=== PATIENT | female | born 1965 | race Caucasian/White ===

== ENCOUNTER 2016-08-29 06:23 | Day surgery (SDC) | payer BC ==
[2016-08-28 09:00] VITALS: BMI 32.3
[~2016-08-29 06:23] MED LIST: DEXAMETHASONE SOD PHOSPHATE 10 MG/ML 1 ML VIAL IV ONE; HEPARIN SODIUM,PORCINE 5,000 UNIT/ML 1 ML VIAL SQ ONE; HYDROmorphone 1 MG/ML 1 ML SYRINGE IVP PRN; LACTATED RINGERS 1,000 ML IV SCH; LIDOCAINE 1% 20 ML VIAL (10MG/ML) FOR IV START INTRADERMA PRN; ONDANSETRON 4 MG/2 ML VIAL IVP ONE; Pre Op ABX Message 1 EACH MISC MISCELLANE ONE; SCOPOLAMINE 1.5MG/72HR PATCH TRANSDERM ONE
[2016-08-29 07:00] VITALS: RESP 16; TEMP 97.9
[2016-08-29] MEDS ORDERED: MIDAZOLAM 2 MG/2 ML VIAL ONE (07:53)
[2016-08-29] MEDS ORDERED: PROPOFOL 10 MG/ML 20 ML VIAL IV ONE (07:53)
[2016-08-29] MEDS ORDERED: fentaNYL (PF) 50 MCG/ML 2 ML AMP ONE (07:53)
[2016-08-29] MEDS ORDERED: LIDOCAINE 1% INJ 10MG/ML (20 ML MDV) ONE (07:53)
--- NOTE | 2016-08-29 07:57 | P.GSHP ---
History of Present Illness H&P Date: 08/29/16 Chief Complaint: Multiple sebaceous cysts of scalp This a 51-year-old female who presents today for excision of sebaceous cyst scalp. Patient developed 6 sebaceous cyst of scalp. They're located along the right anterior and posterior scalp. - Constitutional Constitutional: Reports as per HPI Past Medical History Past Medical History: GERD/Reflux, Hypertension, Osteoarthritis (OA), Skin Disorder Additional Past Medical History / Comment(s): Gilbert's Syndrome. SEBACEOUS CYSTS SCALP. History of Any Multi-Drug Resistant Organisms: None Reported Past Surgical History: Breast Surgery, Orthopedic Surgery, Tubal Ligation Additional Past Surgical History / Comment(s): Foot surg. EXC Lump removed back. SUSAN BREAST REDUCTION. Past Anesthesia/Blood Transfusion Reactions: Postoperative Nausea & Vomiting ( PONV) Past Psychological History: No Psychological Hx Reported Smoking Status: Former smoker Past Alcohol Use History: Occasional Additional Past Alcohol Use History / Comment(s): Quit smoking 2004, Smoked for 3 yrs. Past Drug Use History: None Reported - Past Family History Mother Family Medical History: No Reported History Medications and Allergies Home Medications Medication Instructions Recorded Confirmed Type Calcium Carbonate [Calcium] 600 mg PO DAILY 05/09/15 08/28/16 History Garlic 1 each PO DAILY 05/09/15 08/28/16 History Krill Oil 500 mg PO DAILY 05/09/15 08/28/16 History Ranitidine HCl [Zantac] 150 mg PO DAILY 05/09/15 08/28/16 History Hydrochlorothiazide [Hydrodiuril] 0.5 tab PO DAILY 08/28/16 08/28/16 History Allergies Allergy/AdvReac Type Severity Reaction Status Date / Time No Known Allergies Allergy Verified 08/29/16 06:57 Surgical - Exam Vital Signs Temp Pulse Resp BP Pulse Ox 97.9 F 87 16 114/79 97 08/29/16 06:58 08/29/16 06:58 08/29/16 06:58 08/29/16 06:58 08/29/16 06:58 - General well developed, no distress - Eyes PERRL - ENT Multiple sebaceous cysts of scalp measuring 1-2 cm. There is a total of 6 sebaceous cysts located along the right scalp. normal pinna - Neck no masses - Respiratory normal expansion - Cardiovascular Rhythm: regular - Abdomen Abdomen: soft, non tender Assessment and Plan Plan: Multiple Sebaceous cyst scalp. We'll perform excision.
[2016-08-29] MEDS ORDERED: BUPIVACAIN-EPI 0.25%-1:200,000 30 ML VIAL SQ ONE (08:09)
--- NOTE | 2016-08-29 09:05 | P.OP ---
Date of Procedure: 08/29/16 Preoperative Diagnosis: Multiple sebaceous cyst scalp Postoperative Diagnosis: Multiple sebaceous of scalp excision Procedure(s) Performed: Multiple sebaceous cyst of scalp with excision Anesthesia: EDUARDO Surgeon: Lester Pfeiffer Pathology: other (Sebaceous cyst of scalp 6) Condition: stable Disposition: PACU Description of Procedure: Patient's placed on the operative table in the supine position. She received IV sedation. The patient had 4 sebaceous cyst located on the right anterior portion of her scalp and 2 sebaceous cyst on the right posterior portion of her scalp. The system and pericecal marked in preoperative hold area skin had been shaved in this area. The sebaceous cyst measured between 1 and 2 cm. The skin incision sites were anesthetized 1% local Xylocaine. And then the skin was incised over each sebaceous cyst 13 blade. Using hemostats the cysts were bluntly dissected and removed. The Bovie hemostasis. The skin was closed interrupted 3-0 Monocryl suture. Patient was sent to recovery in stable condition.
[2016-08-29 09:23] VITALS: BP 98/65; PULSE 58
== END 2016-08-29 09:39 | disposition home or self-care (01) ==
LOC: OR 06:23
PROVIDERS: ATTEND Surgery
DX: L72.11 Pilar cyst (principal); K21.9 Gastro-esophageal reflux disease without esophagitis; I10 Essential (primary) hypertension; M19.90 Unspecified osteoarthritis, unspecified site; Z87.891 Personal history of nicotine dependence; Z79.899 Other long term (current) drug therapy
CPT/HCPCS: 81025; 88304; 11426; J2250; J1100; J2405; J2001; J3010; J2704

== ENCOUNTER → 2017-07-07 | Outpatient (CLI) | payer BC ==
--- NOTE | 2017-07-08 13:41 | MM ---
Reason for exam: screening (asymptomatic). Last mammogram was performed 4 years and 2 months ago. History: Family history of breast cancer in paternal aunt and breast cancer in maternal aunt. Reductions of both breasts, 1980. Took hormonal contraceptives for 5 years beginning at age 18. Physical Findings: A clinical breast exam by your physician is recommended on an annual basis and results should be correlated with mammographic findings. MG Screening Mammo w CAD Bilateral CC and MLO view(s) were taken. Prior study comparison: May 19, 2013, bilateral digital screening mammo w/CAD. April 13, 2012, CAD bilateral diagnostic mammogram. There are scattered fibroglandular densities. Stable nodular asymmetry anterior superior left breast. No significant changes when compared with prior studies. ASSESSMENT: Benign, BI-RAD 2 RECOMMENDATION: Routine screening mammogram of both breasts in 1 year.
== END | disposition home or self-care (01) ==
LOC: RADMAMWWP 07:52
PROVIDERS: ATTEND Obstetrics & Gynecology
DX: Z12.31 Encounter for screening mammogram for malignant neoplasm of breast (principal)
CPT/HCPCS: 77067

== ENCOUNTER → 2018-11-22 | Outpatient (CLI) | payer BC ==
--- NOTE | 2018-11-24 07:56 | MM ---
Reason for exam: screening (asymptomatic). Last mammogram was performed 1 year and 5 months ago. History: Family history of breast cancer in paternal aunt. Reductions of both breasts, 1980. Took hormonal contraceptives for 5 years beginning at age 18. MG Screening Mammo w CAD Bilateral CC and MLO view(s) were taken. Prior study comparison: July 07, 2017, bilateral MG screening mammo w CAD. May 19, 2013, bilateral digital screening mammo w/CAD. There are scattered fibroglandular densities. No significant new finding when compared with prior studies. ASSESSMENT: Benign, BI-RAD 2 RECOMMENDATION: Routine screening mammogram of both breasts in 1 year.
== END | disposition home or self-care (01) ==
LOC: RADMAMWWP 14:53
PROVIDERS: ATTEND Obstetrics & Gynecology
DX: Z12.31 Encounter for screening mammogram for malignant neoplasm of breast (principal)
CPT/HCPCS: 77067

== ENCOUNTER → 2020-03-29 | Outpatient (CLI) | payer BC ==
--- NOTE | 2020-03-29 14:33 | MM ---
Reason for exam: screening (asymptomatic). Last mammogram was performed 1 year and 4 months ago. History: Patient is postmenopausal. Family history of breast cancer in paternal aunt. Reductions of both breasts, 1980. Took hormonal contraceptives for 5 years beginning at age 18. Physical Findings: A clinical breast exam by your physician is recommended on an annual basis and results should be correlated with mammographic findings. MG Screening Mammo w CAD Bilateral CC and MLO view(s) were taken. Prior study comparison: November 22, 2018, bilateral MG screening mammo w CAD. July 07, 2017, bilateral MG screening mammo w CAD. There are scattered fibroglandular densities. Finding #1: There is a 9 mm round mass located 3 cm from the nipple in the middle, central position of the left breast. Finding #2: There are typically benign round calcifications in both breasts. Focal asymmetry right anterior outer aspect. New finding since November 22, 2018 and July 07, 2017. ASSESSMENT: Incomplete: need additional imaging evaluation, BI-RAD 0 RECOMMENDATION: Special view mammogram of both breasts. If lesion persists on supplemental views, image directed ultrasound is recommended. [facility] will attempt to contact patient to return for supplemental views and ultrasound if indicated.
== END | disposition home or self-care (01) ==
LOC: RADMAMWWP 10:40
PROVIDERS: ATTEND Obstetrics & Gynecology
DX: Z12.31 Encounter for screening mammogram for malignant neoplasm of breast (principal)
CPT/HCPCS: 77067

== ENCOUNTER → 2020-04-04 | Outpatient (CLI) | payer BC ==
--- NOTE | 2020-04-04 10:31 | MM ---
Reason for exam: additional evaluation requested from abnormal screening. Last mammogram was performed less than 1 month ago. History: Patient is postmenopausal. Family history of breast cancer in paternal aunt. Reductions of both breasts, 1980. Took hormonal contraceptives for 5 years beginning at age 18. Physical Findings: Nurse did not find any significant physical abnormalities on exam. MG Work Up Mamm w CAD BILAT Bilateral spot compression CC, spot compression MLO, and LM view(s) were taken. Prior study comparison: March 29, 2020, bilateral MG screening mammo w CAD. November 22, 2018, bilateral MG screening mammo w CAD. There is no discrete abnormality. These results were verbally communicated with the patient and result sheet given to the patient on 04/04/20. ASSESSMENT: Probably benign, BI-RAD 3 RECOMMENDATION: Follow-up diagnostic mammogram of both breasts in 6 months.
== END | disposition home or self-care (01) ==
LOC: RADMAMWWP 09:28
PROVIDERS: ATTEND Obstetrics & Gynecology
DX: R92.8 Other abnormal and inconclusive findings on diagnostic imaging of breast (principal)
CPT/HCPCS: 77066

== ENCOUNTER → 2021-04-09 | Outpatient (CLI) | payer BC ==
--- NOTE | 2021-04-10 14:30 | MM ---
Reason for exam: screening (asymptomatic). Last mammogram was performed 1 year ago. History: Patient is postmenopausal. Family history of breast cancer in paternal aunt. Reductions of both breasts, July 2020. Reductions of both breasts, 1979. Took hormonal contraceptives for 5 years beginning at age 18. Physical Findings: A clinical breast exam by your physician is recommended on an annual basis and results should be correlated with mammographic findings. MG Screening Mammo w CAD Bilateral CC and MLO view(s) were taken. XCCL view(s) were taken of the right breast. Prior study comparison: April 04, 2020, bilateral MG work up mamm w CAD BILAT. March 29, 2020, bilateral MG screening mammo w CAD. The breast tissue is heterogeneously dense. This may lower the sensitivity of mammography. Finding #1: There is a 7 mm equal density (isodense), oval mass in the upper quadrant, central position of the left breast. Finding #2: There are typically benign calcifications in both breasts. There is a 5mm oval nodule in the right outer breast. ASSESSMENT: Incomplete: need additional imaging evaluation, BI-RAD 0 RECOMMENDATION: Special view mammogram of both breasts. If lesion persists on supplemental views, image directed ultrasound is recommended. [facility] will attempt to contact patient to return for supplemental views and ultrasound if indicated.
== END | disposition home or self-care (01) ==
LOC: RADMAMWWP 15:39
PROVIDERS: ATTEND Obstetrics & Gynecology
DX: Z12.31 Encounter for screening mammogram for malignant neoplasm of breast (principal); Z78.0 Asymptomatic menopausal state; Z80.3 Family history of malignant neoplasm of breast
CPT/HCPCS: 77067

== ENCOUNTER → 2021-04-18 | Outpatient (CLI) | payer BC ==
--- NOTE | 2021-04-22 10:21 | MM ---
Reason for exam: additional evaluation requested from abnormal screening. Last mammogram was performed less than 1 month ago. History: Patient is postmenopausal. Family history of breast cancer in paternal aunt. Reductions of both breasts, July 2020. Reductions of both breasts, 1979. Took hormonal contraceptives for 5 years beginning at age 18. Physical Findings: Nurse did not find any significant physical abnormalities on exam. MG Work Up Mamm w CAD BILAT Bilateral spot compression CC and LM view(s) were taken. Spot compression MLO view(s) were taken of the left breast. Prior study comparison: April 09, 2021, bilateral MG screening mammo w CAD. April 04, 2020, bilateral MG work up mamm w CAD BILAT. There are scattered fibroglandular densities. Status post reduction mammoplasty changes. Density on the right becomes less defined, suspect post surgical change. 6 month follow up. A couple focal asymmetries remain centrally left breast. Ultrasound recommended. These may be post surgical change. These results were verbally communicated with the patient and result sheet given to the patient on 04/18/21. ASSESSMENT: Incomplete: need additional imaging evaluation, BI-RAD 0 RECOMMENDATION: Ultrasound of the left breast.
--- NOTE | 2021-04-22 10:23 | USB ---
Reason for exam: additional evaluation requested from abnormal screening. History: Patient is postmenopausal. Family history of breast cancer in paternal aunt. Reductions of both breasts, July 2020. Reductions of both breasts, 1979. Took hormonal contraceptives for 5 years beginning at age 18. US Breast Workup Limited LT Left limited breast ultrasound including focal area of concern, retroareolar and axilla demonstrates no cystic or solid lesion seen. Scanned 12-3 o'clock and entire periareolar region zone A. The mammographic densities may correspond to post operative changes. 6 month follow up recommended. These results were verbally communicated with the patient and result sheet given to the patient on 04/18/21. ASSESSMENT: Probably benign, BI-RAD 3 RECOMMENDATION: Return to routine screening mammogram schedule for both breasts.
== END | disposition home or self-care (01) ==
LOC: RADMAMWWP 06:58
PROVIDERS: ATTEND Obstetrics & Gynecology
DX: N64.89 Other specified disorders of breast (principal); Z80.3 Family history of malignant neoplasm of breast; Z78.0 Asymptomatic menopausal state
CPT/HCPCS: 77066

== ENCOUNTER → 2022-04-10 | Outpatient (CLI) | payer BC ==
--- NOTE | 2022-04-11 11:29 | MM ---
Reason for Exam: Screening (asymptomatic). Last screening mammogram was performed 12 month(s) ago. Patient History: Menarche at age 10. First Full-Term at age 21. Postmenopausal. Hormonal Contraceptives for 5 years from age 18 until age 25. 07/2020, Bilateral Reduction. 1979, Bilateral Reduction. Paternal aunt had breast cancer at or over age 50. Risk Values: Madhavi 5 year model risk: 1.3%. NCI Lifetime model risk: 7.6%. Prior Study Comparison: 04/04/2020 Bilateral Diagnostic Mammogram, [facility]. 04/09/2021 Bilateral Screening Mammogram, [facility]. 04/18/2021 Bilateral Diagnostic Mammogram, [facility]. Tissue Density: The breast tissue is heterogeneously dense. This may lower the sensitivity of mammography. Findings: Analyzed By CAD. Poor visualization of posterior tissue bilaterally on CC views. There is focal asymmetry in the posterior depth centrally right breast fat warrants further workup immediately anterior to a benign round calcification. There is no suspicious group of microcalcifications in either breast. Overall Assessment: Incomplete: need additional imaging evaluation, BI-RAD 0 Management: Special View Mammogram of the right breast. Return for additional views right breast. Electronically signed and approved by: Henrry Booker M.D.
== END | disposition home or self-care (01) ==
LOC: RADMAMWWP 07:05
PROVIDERS: ATTEND Obstetrics & Gynecology
DX: Z12.31 Encounter for screening mammogram for malignant neoplasm of breast (principal); Z78.0 Asymptomatic menopausal state; Z80.3 Family history of malignant neoplasm of breast
CPT/HCPCS: 77067

== ENCOUNTER → 2022-05-28 | Outpatient (CLI) | payer BC ==
--- NOTE | 2022-05-28 07:41 | MM ---
Reason for Exam: Additional evaluation requested from abnormal screening. Last screening mammogram was performed 2 month(s) ago. Patient History: Menarche at age 10. First Full-Term at age 21. Postmenopausal. Hormonal Contraceptives for 5 years from age 18 until age 25. 07/2020, Bilateral Reduction. 1979, Bilateral Reduction. Paternal aunt had breast cancer at or over age 50. Risk Values: Madhavi 5 year model risk: 1.3%. NCI Lifetime model risk: 7.6%. Prior Study Comparison: 04/09/2021 Bilateral Screening Mammogram, [facility]. 04/18/2021 Bilateral Diagnostic Mammogram, [facility]. 04/10/2022 Bilateral MG screening mammo w CAD, [facility]. Tissue Density: Right: The breast tissue is heterogeneously dense. This may lower the sensitivity of mammography. Findings: Analyzed By CAD. Nodular density right 11:00 position 5.7 cm from the nipple measures 1.2 cm. Ultrasound is recommended. Overall Assessment: Incomplete: need additional imaging evaluation, BI-RAD 0 Management: Diagnostic Breast Ultrasound of the right breast. A clinical breast exam by your physician is recommended on an annual basis and results should be correlated with mammographic findings. This exam should not preclude additional follow-up of suspicious palpable abnormalities. Results were given to the patient verbally at the time of exam. Electronically signed and approved by: Eren Hunter M.D. Radiologis
--- NOTE | 2022-05-28 08:04 | USB ---
Reason for Exam: Additional evaluation requested from abnormal screening. Patient History: Menarche at age 10. First Full-Term at age 21. Postmenopausal. Hormonal Contraceptives for 5 years from age 18 until age 25. 07/2020, Bilateral Reduction. 1979, Bilateral Reduction. Paternal aunt had breast cancer at or over age 50. Risk Values: Madhavi 5 year model risk: 1.3%. NCI Lifetime model risk: 7.6%. Technique: Method: Targeted. Patient Position: Supine. Prior Study Comparison: 04/09/2021 Bilateral Screening Mammogram, [facility]. 04/18/2021 Bilateral Diagnostic Mammogram, [facility]. 04/10/2022 Bilateral MG screening mammo w CAD, [facility]. Findings: The upper outer quadrant of the right breast, the axilla of the right breast and the retroareolar of the right breast were scanned. No solid or cystic masses are identified.. Overall Assessment: Probably benign, BI-RAD 3 Management: Diagnostic Mammogram of the right breast in 6 months. A clinical breast exam by your physician is recommended on an annual basis and results should be correlated with mammographic findings. This exam should not preclude additional follow-up of suspicious palpable abnormalities. Results were given to the patient verbally at the time of exam. Electronically signed and approved by: Eren Hunter M.D. Radiologis
== END | disposition home or self-care (01) ==
LOC: RADMAMWWP 06:55
PROVIDERS: ATTEND Obstetrics & Gynecology
DX: R92.8 Other abnormal and inconclusive findings on diagnostic imaging of breast (principal); Z78.0 Asymptomatic menopausal state; Z80.3 Family history of malignant neoplasm of breast
CPT/HCPCS: 77065

== ENCOUNTER → 2022-11-13 | Outpatient (CLI) | payer BC ==
--- NOTE | 2022-11-13 07:33 | MM ---
Reason for Exam: Follow-up at short interval from prior study. Last screening mammogram was performed 7 month(s) ago. Patient History: Menarche at age 10. First Full-Term at age 21. Postmenopausal. Estrogen, starting at age 56. 07/2020, Bilateral Reduction. 1979, Bilateral Reduction. Paternal aunt had breast cancer at or over age 50. Risk Values: Madhavi 5 year model risk: 1.3%. NCI Lifetime model risk: 7.6%. Prior Study Comparison: 04/18/2021 Bilateral Diagnostic Mammogram, [facility]. 04/10/2022 Bilateral MG screening mammo w CAD, [facility]. 05/28/2022 Right MG work up mamm w CAD RT, [facility]. Tissue Density: Right: The breast tissue is heterogeneously dense. This may lower the sensitivity of mammography. Findings: Analyzed By CAD. Asymmetric density upper outer right breast persists and is likely related to prior reduction mammoplasty. Continued follow-up is advised. No suspicious calcifications evident. Overall Assessment: Probably benign, BI-RAD 3 Management: Diagnostic Mammogram of both breasts in 6 months. . Results were given to the patient verbally at the time of exam. Patient should continue monthly self-breast exams. A clinical breast exam by your physician is recommended on an annual basis. This exam should not preclude additional follow-up of suspicious palpable abnormalities. Note on Madhavi scores and lifetime risk: 1. A Madhavi score greater than 3% is considered moderate risk. If this is the case, consider specialist referral to assess eligibility for a risk reducing agent. 2. If overall lifetime risk for the development of breast cancer is 20% or higher, the patient may qualify for future screening with alternating mammogram and breast MRI. Electronically signed and approved by: Eren Hunter M.D. Radiologis
== END | disposition home or self-care (01) ==
LOC: RADMAMWWP 07:13
PROVIDERS: ATTEND Obstetrics & Gynecology
DX: R92.8 Other abnormal and inconclusive findings on diagnostic imaging of breast (principal); Z78.0 Asymptomatic menopausal state; Z80.3 Family history of malignant neoplasm of breast
CPT/HCPCS: 77061; 77065

== ENCOUNTER → 2023-07-02 | Outpatient (CLI) | payer BC ==
--- NOTE | 2023-07-02 09:48 | MM ---
Reason for Exam: Follow-up at short interval from prior study. Last mammogram was performed 1 year(s) and 3 month(s) ago. Patient History: Menarche at age 10. First Full-Term at age 21. Postmenopausal. Estrogen, starting at age 56. 07/2020, Bilateral Reduction. 1979, Bilateral Reduction. Paternal aunt had breast cancer at or over age 50. Risk Values: Madhavi 5 year model risk: 1.4%. NCI Lifetime model risk: 7.4%. Tissue Density: The breasts are heterogeneously dense, which may obscure small masses. Findings: Analyzed By CAD. Asymmetric density upper outer left breast 2.5 cm from the nipple measuring approximately 1 cm. Ultrasound is recommended. No mass seen of the right breast. There is disorganized breast tissue seen bilaterally compatible with reduction mammoplasty. No suspicious calcifications present. Overall Assessment: Incomplete: need additional imaging evaluation, BI-RAD 0 Management: Diagnostic Breast Ultrasound of the left breast. . Results were given to the patient verbally at the time of exam. Patient should continue monthly self-breast exams. A clinical breast exam by your physician is recommended on an annual basis. This exam should not preclude additional follow-up of suspicious palpable abnormalities. Note on Madhavi scores and lifetime risk: 1. A Madhavi score greater than 3% is considered moderate risk. If this is the case, consider specialist referral to assess eligibility for a risk reducing agent. 2. If overall lifetime risk for the development of breast cancer is 20% or higher, the patient may qualify for future screening with alternating mammogram and breast MRI. Electronically signed and approved by: Eren Hunter M.D. Radiologis
--- NOTE | 2023-07-02 10:08 | USB ---
Patient History: Menarche at age 10. First Full-Term at age 21. Postmenopausal. Estrogen, starting at age 56. 07/2020, Bilateral Reduction. 1979, Bilateral Reduction. Paternal aunt had breast cancer at or over age 50. Risk Values: Madhavi 5 year model risk: 1.4%. NCI Lifetime model risk: 7.4%. Technique: Method: Targeted. Prior Study Comparison: 04/10/2022 Bilateral MG screening mammo w CAD, [facility]. 05/28/2022 Right MG work up mamm w CAD RT, [facility]. 11/13/2022 Right MG 3D diag mammo w/cad RT, [facility]. Findings: The upper outer quadrant of the left breast, the axilla of the left breast and the retroareolar of the left breast were scanned. Vague area of hypoechogenicity left 2:00 position 3 cm from the nipple could reflect an area of fat necrosis. Six-month follow-up is recommended.. Overall Assessment: Probably benign, BI-RAD 3 Management: Diagnostic Breast Ultrasound of the left breast. A clinical breast exam by your physician is recommended on an annual basis and results should be correlated with mammographic findings. This exam should not preclude additional follow-up of suspicious palpable abnormalities. Results were given to the patient verbally at the time of exam. Electronically signed and approved by: Eren Hunter M.D. Radiologis
== END | disposition home or self-care (01) ==
LOC: RADMAMWWP 09:08
PROVIDERS: ATTEND Obstetrics & Gynecology
DX: R92.333 Mammographic heterogeneous density, bilateral breasts (principal); Z80.3 Family history of malignant neoplasm of breast; Z78.0 Asymptomatic menopausal state
CPT/HCPCS: 77062; 77066

== ENCOUNTER → 2024-02-01 | Outpatient (CLI) | payer BC ==
--- NOTE | 2024-02-01 11:00 | USB ---
Reason for Exam: Follow-up at short interval from prior study. Patient History: Menarche at age 10. First Full-Term at age 21. Postmenopausal. Estrogen, starting at age 56. 07/2020, Bilateral Reduction. 1979, Bilateral Reduction. Paternal aunt had breast cancer at or over age 50. Risk Values: Madhavi 5 year model risk: 1.4%. NCI Lifetime model risk: 7.4%. Technique: Method: Targeted. Prior Study Comparison: 05/28/2022 Right MG work up mamm w CAD RT, [facility]. 11/13/2022 Right MG 3D diag mammo w/cad RT, [facility]. 07/02/2023 Bilateral MG 3D diag mammo w/cad SUSAN, [facility]. Findings: The upper section of the breast of the left breast, the axilla of the left breast and the retroareolar of the left breast were scanned. No solid or cystic masses are identified.. Overall Assessment: Negative, BI-RAD 1 Management: Screening Mammogram of both breasts in 6 months. A clinical breast exam by your physician is recommended on an annual basis and results should be correlated with mammographic findings. This exam should not preclude additional follow-up of suspicious palpable abnormalities. Results were given to the patient verbally at the time of exam. [facility], , 02/01/2024 10:49 AM. Electronically signed and approved by: Eren Hunter M.D. Radiologis
== END | disposition home or self-care (01) ==
LOC: RADUSWWP 10:23
PROVIDERS: ATTEND Obstetrics & Gynecology
DX: R92.8 Other abnormal and inconclusive findings on diagnostic imaging of breast

== ENCOUNTER 2024-07-04 08:58 | Day surgery (SDC) | payer BC ==
[2024-06-30 12:24] VITALS: BMI 22.6
[~2024-07-04 08:58] MED LIST changes: -DEXAMETHASONE SOD PHOSPHATE 10 MG/ML 1 ML VIAL IV ONE; -HEPARIN SODIUM,PORCINE 5,000 UNIT/ML 1 ML VIAL SQ ONE; +HYDROmorphone 0.5 MG/0.5 ML SYRINGE IVP PRN; -HYDROmorphone 1 MG/ML 1 ML SYRINGE IVP PRN; -LACTATED RINGERS 1,000 ML IV SCH; +LIDOCAINE 1% (10MG/ML) FOR IV START INTRADERMA PRN; -LIDOCAINE 1% 20 ML VIAL (10MG/ML) FOR IV START INTRADERMA PRN; +MIDAZOLAM 2 MG/2 ML VIAL IV PRN; -ONDANSETRON 4 MG/2 ML VIAL IVP ONE; -SCOPOLAMINE 1.5MG/72HR PATCH TRANSDERM ONE; +fentaNYL (PF) 50 MCG/ML 2 ML AMP IVP PRN
[2024-07-04] MEDS: LACTATED RINGERS 1,000 ML IV ONE (09:17)
[2024-07-04 09:25] VITALS: TEMP 97.2
[2024-07-04] MEDS: LACTATED RINGERS 1,000 ML IV SCH (09:43)
[2024-07-04] MEDS: ACETAMINOPHEN TAB 500 MG TAB PO PRN (09:43)
[2024-07-04] MEDS: DEXAMETHASONE SOD PHOSPHATE 4 MG/ML 1 ML VIAL IV ONE (09:44)
[2024-07-04] MEDS: ONDANSETRON 4 MG/2 ML VIAL IVP ONE (09:44)
[2024-07-04] MEDS: HEPARIN SODIUM,PORCINE 5,000 UNIT/ML 1 ML VIAL SQ PRN (09:44)
[2024-07-04] MEDS ORDERED: MIDAZOLAM 2 MG/2 ML VIAL ONE (10:15)
[2024-07-04] MEDS ORDERED: fentaNYL (PF) 50 MCG/ML 2 ML AMP ONE (10:15)
[2024-07-04] MEDS ORDERED: KETAMINE HCL IN 0.9 % NACL 50 MG/5 ML SYRINGE ONE (10:15)
[2024-07-04] MEDS ORDERED: PROPOFOL 10 MG/ML 20 ML VIAL IV ONE (10:15)
[2024-07-04] MEDS: LIDOCAINE 1%-EPI 1:100,000 20 ML VIAL SQ ONE ×2 (10:21)
[2024-07-04] MEDS: SODIUM CHLORIDE 0.9% 50 ML with ceFAZolin 2 GM IV ONE (10:50)
[2024-07-04 12:04] VITALS: BP 124/72; PULSE 73; RESP 18
--- NOTE | 2024-07-07 16:08 | P.OP ---
Date of Procedure: 07/04/24 Preoperative Diagnosis: sebaceous cyst of scalp x 3 Postoperative Diagnosis: sebaceous cyst of scalp x 3 Procedure(s) Performed: excision of sebaceous cyst scalp x 3 Anesthesia: MAC Surgeon: Lester Pfeiffer Estimated Blood Loss (ml): 5 Pathology: other (sebaceous cyst) Condition: stable Disposition: PACU Description of Procedure: the patient is placed on the operative table in the supine position. She received IV sedation. Her scalp was prepped and draped you sterile fashion. The first sebaceous cyst was anesthetized 1% local Xylocaine. It measures approximate 2 cm diameter. The skin incised and the sebaceous cyst was dissected free cytopathology. The second sebaceous cyst was dissected medical fashion and sent to pathology. It measured 1.5 cm. The third sebaceous cyst measured 5 mm in size. It was dissected medical fashion and sent to pathology. The skin was closed with interrupted 3-0 Monocryl suture. Patient tolerated well. She was sent to recovery room in stable condition.
== END 2024-07-04 12:03 | disposition home or self-care (01) ==
LOC: OR 08:58
PROVIDERS: ATTEND Surgery
DX: L72.11 Pilar cyst (principal)
CPT/HCPCS: 88304; 11422; J2250; J1644; J1100; J0690; J2405; J3010; J2704

== ENCOUNTER → 2024-07-22 | Outpatient (CLI) | payer BC ==
--- NOTE | 2024-07-22 10:28 | MM ---
Reason for Exam: Screening (asymptomatic). Last screening mammogram was performed 12 month(s) ago. Patient History: Menarche at age 10. First Full-Term at age 21. Postmenopausal. Currently using Estrogen, starting at age 56. 07/2020, Bilateral Reduction. 1979, Bilateral Reduction. Paternal aunt had breast cancer, age 55. Risk Values: Madhavi 5 year model risk: 1.4%. NCI Lifetime model risk: 7.2%. Prior Study Comparison: 05/28/2022 Right MG work up mamm w CAD RT, [facility]. 11/13/2022 Right MG 3D diag mammo w/cad RT, [facility]. 07/02/2023 Bilateral MG 3D diag mammo w/cad [facility], [facility]. Tissue Density: The breasts are heterogeneously dense, which may obscure small masses. Findings: Analyzed By CAD. There is no suspicious group of microcalcifications or new suspicious mass in either breast. Benign-appearing calcifications. Stable appearing asymmetric density in the central margin of the right breast seen. Unchanged from 2001. Overall Assessment: Benign, BI-RAD 2 Management: Screening Mammogram of both breasts in 1 year. . Patient should continue monthly self-breast exams. A clinical breast exam by your physician is recommended on an annual basis. This exam should not preclude additional follow-up of suspicious palpable abnormalities. Note on Madhavi scores and lifetime risk: 1. A Madhavi score greater than 3% is considered moderate risk. If this is the case, consider specialist referral to assess eligibility for a risk reducing agent. 2. If overall lifetime risk for the development of breast cancer is 20% or higher, the patient may qualify for future screening with alternating mammogram and breast MRI. [facility], , 07/22/2024 10:25 AM. Electronically signed and approved by: Prieto Bains M.D. [facility]
== END | disposition home or self-care (01) ==
LOC: RADMAMWWP 09:53
PROVIDERS: ATTEND Obstetrics & Gynecology
DX: Z12.31 Encounter for screening mammogram for malignant neoplasm of breast (principal); R92.1 Mammographic calcification found on diagnostic imaging of breast; R92.333 Mammographic heterogeneous density, bilateral breasts; Z78.0 Asymptomatic menopausal state; Z80.3 Family history of malignant neoplasm of breast
CPT/HCPCS: 77063; 77067